=== PATIENT | male | born 1965 | race Two or more races ===

== ENCOUNTER 2025-03-29 10:41 | Emergency (ER) | payer OTHER, MEDICAID ==
[~2025-03-29] VITALS: Ht 175.3 cm; Wt 82.0 kg
--- NOTE | 2025-03-29 11:35 | ED.PDOC ---
History of Present Illness HPI Comments A 59-YEAR-OLD MALE PRESENTS WITH A CHIEF COMPLAINT OF HTN. PT STATES HE HAS HX OF HTN AND TAKES LISINOPRIL 10MG DAILY. HE RAN OUT OF HIS MEDICATION ONE MPONTH AGO AND HE DID NOT TAKE HIS HTN MEDICATION FOR ONE MONTH. HE CHECKED HIS BLOOD PRESSURE AT HOME THIS MORNING AND AND IT WAS 188/103 & 169/101. HE TOOK SOMEONE'S HTN MEDICATION, NOW BLOOD PRESSURE IS 143/86. PATIENT DENIES FEVER, SOB, CHEST PAIN, HEADACHE, DIZZINESS AND OTHER COMPLAINTS. PT IS ALERT, ORIENTATION X4 WITH NORMAL GAIT. NO OTHER SYMPTOMS REPORTED AT THIS TIME OF CARE. Chief Complaint: High Blood Pressure Time Seen by MD: 11:30 Reviewed Notes: Nurses Notes, Medications, Allergies Allergies: Coded Allergies: NO KNOWN ALLERGIES (Unverified , 03/29/25) Home Meds Active Scripts Lisinopril (Lisinopril) 20 Mg Tab, 1 TAB PO DAILY, #30 TAB 1 Refill Prov:MILLICENT CULLEN 03/29/25 Information Source: Patient Mode of Arrival: Ambulatory Severity: Mild, Moderate Timing: Days Duration: Since onset, Days Prehospital treatment: None Medication Refill: Ran out of Medication, For: Hypertension Past Medical History PAST MEDICAL HISTORY: HTN Surgical History: Denies all surgeries Family History Family History: Reviewed,noncontributory to illness Social History Smoker: Non-Smoker Alcohol: Denies ETOH Use Drugs: Denies Drug Use Lives In: Home Constitutional: denies: chills, diaphoresis, fatigue, fever, malaise, sweats, weakness, others EENTM: denies: blurred vision, double vision, ear bleeding, ear discharge, ear drainage, ear pain, ear ringing, eye pain, eye redness, hearing loss, mouth pain, mouth swelling, nasal discharge, nose bleeding, nose congestion, nose pain, photophobia, tearing, throat pain, throat swelling, voice changes, others Respiratory: denies: cough, hemoptysis, orthopnea, SOB at rest, shortness of breath, SOB with excertion, stridor, wheezing, others Cardiovascular: denies: chest pain, dizzy spells, diaphoresis, Dyspnea on exertion, edema, irregular heart beat, left arm pain, lightheadedness, palpitations, PND, syncope, others Gastrointestinal: denies: abdomen distended, abdominal pain, blood streaked bowels, constipated, diarrhea, dysphagia, difficulty swallowing, hematemesis, melena, nausea, poor appetite, poor fluid intake, rectal bleeding, rectal pain, vomiting, others Genitourinary: denies: burning, dysuria, flank pain, frequency, hematuria, incontinence, penile discharge, penile sore, pain, testicle pain, testicle swelling, urgency, others Neurological: denies: dizziness, fainting, headache, left sided numbness, left sided weakness, numbness, paresthesia, pre-existing deficit, right sided numbness, right sided weakness, seizure, speech problems, tingling, tremors, weakness, others Musculoskeletal: denies: back pain, gout, joint pain, joint swelling, muscle pain, muscle stiffness, neck pain, others Integumetry: denies: bruises, change in color, change in hair/nails, dryness, laceration, lesions, lumps, rash, wounds, others Allergic/Immunocompromised: denies: Difficulty Healing, Frequent Infections, Hives, Itching, others Hematologic/Lymphatic: denies: anemia, blood clots, easy bleeding, easy bruising, swollen glands, others Endocrine: denies: excessive hunger, excessive sweating, excessive thirst, excessive urination, flushing, intolerance to cold, intolerance to heat, unexplained weight gain, unexplained weight loss, others Psychiatric: denies: anxiety, bipolar disorder, depression, hopeless, panic disorder, schizophrenia, sleepless, suicidal, others All Other Systems: Reviewed and Negative Physical Exam General Appearance: No Apparent Distress, Normal HEENT: Normal ENT Inspection, PERRL/EOMI, Pharynx Normal, TMs Normal Neck: Full Range of Motion, Non-Tender, Normal, Normal Inspection Respiratory: Chest Non-Tender, Lungs Clear, No Accessory Muscle Use, No Respiratory Distress, Normal Breath Sounds Cardiovascular: No Edema, No JVD, No Murmur, No Gallop, Normal Peripheral Pulses, Regular Rate/Rhythm Breast Exam: Deferred Gastrointestinal: No Organomegaly, Non Tender, No Pulsatile Mass, Normal Bowel Sounds, Soft Genitalia: Deferred Pelvic: Deferred Rectal: Deferred Extremities: No calf tenderness, Normal capillary refill, Normal inspection, Normal range of motion, Non-tender, No pedal edema Musculoskeletal : Apperance: Normal Neurologic: Alert, senior quality engineer II-XII nml as Tested, No Motor Deficits, Normal Affect, Normal Mood, No Sensory Deficits Cerebellar Function: Normal Reflexes: Normal Skin: Dry, Normal Color, Warm Peripheral Pulses: 2+ carotid (R), 2+ carotid (L) Lymphatic: No Adenopathy Was a procedure done? Was a procedure done?: No Differential Dx Considerations may include: HTN, NONCOMPLIANT HTN MEDICATION X-Ray, Labs, Meds, VS Vital Signs Date Time Temp Pulse Resp B/P (MAP) Pulse Ox O2 Delivery O2 Flow Rate FiO2 03/29/25 12:33 97.5 92 18 163/93 (116) 95 97.5 03/29/25 12:33 92 18 95 Room Air 03/29/25 11:31 143/86 (105) 03/29/25 10:47 84 03/29/25 10:41 97.6 97 18 188/103 97 97.6 Lab Test 03/29/25 11:37 Range/Units White Blood Count 8.2 4.4-10.8 10^3/uL Red Blood Count 5.98 H 4.5-5.90 10^6/uL Hemoglobin 18.5 H 13.5-17.5 g/dL Hematocrit 51.9 41.0-53.0 % Mean Corpuscular Volume 86.8 80.0-100.0 fL Mean Corpuscular Hemoglobin 31.0 28.0-32.0 pg Mean Corpuscular Hemoglobin Concent 35.7 32.0-36.0 g/dL Red Cell Distribution Width 13.8 11.8-14.3 % Platelet Count 267 140-450 10^3/uL Mean Platelet Volume 7.3 6.9-10.8 fL Neutrophils (%) (Auto) 72.6 37.0-80.0 % Lymphocytes (%) (Auto) 18.9 10.0-50.0 % Monocytes (%) (Auto) 5.4 0.0-12.0 % Eosinophils (%) (Auto) 2.5 0.0-7.0 % Basophils (%) (Auto) 0.6 0.0-2.0 % Neutrophils # (Auto) 5.9 1.6-8.6 10 ^3/uL Lymphocytes # (Auto) 1.5 0.4-5.4 10 ^3/uL Monocytes # (Auto) 0.4 0-1.3 10 ^3/uL Eosinophils # (Auto) 0.2 0-0.8 10 ^3/uL Basophils # (Auto) 0.1 0-0.2 10 ^3/uL Nucleated Red Blood Cells 0.1 % Sodium Level 138 136-145 mmol/L Potassium Level 4.7 3.5-5.1 mmol/L Chloride Level 102 98-107 mmol/L Carbon Dioxide Level 30 20-31 mmol/L Anion Gap 6 5-15 Blood Urea Nitrogen 22 9-23 mg/dL Creatinine 1.27 0.700-1.30 mg/dL Glomerular Filtration Rate Calc 65 >90 mL/min BUN/Creatinine Ratio 17.3 10.0-20.0 Serum Glucose 171 H 74-106 mg/dL Calcium Level 9.5 8.7-10.4 mg/dL Troponin I High Sensitivity 8 </=54 ng/L PATIENT: TITO LINCCT: [id number]: [id number] : 1965 LOC: ER ROOM / BED: / AGE / SEX: 59 / M ADM STATUS: REG ER SERVICE 1130 ORDERING PHYSICIAN: MILLICENT CULLEN PROCEDURE(s): CXR1 - CHEST XRAY 1 VIEW REASON: HTN ORDER NUMBER(s): [id number], ACCESSION NUMBER(s): [id number] CHEST RADIOGRAPH Indication: HTN Technique: Single frontal view of the chest was obtained Comparison: None FINDINGS: Lines and Tubes: None Lungs: No focal consolidation. Pleura: No effusion. No pneumothorax. Cardiomediastinal contours: Unremarkable Bones: No acute osseous abnormality. IMPRESSION: No acute cardiopulmonary disease. ATED BY: ISAÍAS ZUNIGA MD DICTATED DATE/TIME: 03/29/251201 SIGNED BY: ISAÍAS ZUNIGA MD SIGNED DATE/TIME: 03/29/251201 CC: X-Ray, Labs, Meds, VS Comment EXTERNAL MEDICAL RECORDS REVIEWED: [NONE] INDEPENDENT HISTORIANS: [NONE] SOCIAL DETERMINANTS OF HEALTH: [NONE] LABS ORDERED: BMP, CBC, UA REVIEWED AND INTERPRETED RESULTS: NONE IMAGING ORDERED: CHEST X-RAY: NORMAL TREATMENTS ORDERED: NO PROCEDURES PERFORMED: NONE CRITICAL CARE TIME: NONE I HAVE DISCUSSED THE PATIENT WITH THE ATTENDING PHYSICIAN DR. JOSE ROBERTO FARLEY AND SHE AGREES WITH THE PATIENT'S PLAN OF CARE AND DISPOSITION. BASED ON HISTORY OF PRESENT ILLNESS, AND PHYSICAL EXAM, PATIENT WILL BE DISCHARGED HOME. DISCUSSED PLAN FOR DISCHARGE HOME WITH RX [LISINOPRIL 20MG ]. MEDICATION WARNINGS GIVEN. SHARED DECISION MAKING: DISCUSSED WITH PATIENT THAT THEIR WORKUP WAS NORMAL. PATIENT INSTRUCTED TO FOLLOW UP WITH PRIMARY CARE PROVIDER IN 1-2 DAYS FOR RE- EVALUATION OF SYMPTOMS. PATIENT VERBALIZES UNDERSTANDING TO RETURN TO ED FOR NEW OR WORSENING SYMPTOMS OR IF FOLLOW UP WITH PCP CANNOT BE OBTAINED. PATIENT FEELS COMFORTABLE GOING HOME AT THIS TIME. ALL QUESTIONS ADDRESSED AT TIME OF DISCHARGE. Time of 1ST Reevaluation: 12:00 Reevaluation 1ST: Improved Patient Education/Counseling: Diagnosis, Treatment, Need For Follow Up Family Education/Counseling: Diagnosis, Treatment, No Family Present Medical Screening: No EMC Exist At This Time SEPSIS Sepsis Screen Date sepsis recognized/suspect: Mar 29, 2025 Time Sepsis recognized/suspect: 1043 Recent Procedure: No On Antibiotic Therapy: No Respiratory Rate >20: No Heart Rate >90: Yes Temp<36 C (96.8 F) or >38.3 C: No SBP <90 or MAP <65 mmHG: No New Acute Mental Status Change: No Is the patient on CPAP, BIPAP,: No Physician Orders Electrocardigram (03/29/25 10:44) Urinalysis (03/29/25 11:30) Chest Xray 1 View (03/29/25 11:30) Vital Signs Date Time Temp Pulse Resp B/P (MAP) Pulse Ox O2 Delivery O2 Flow Rate FiO2 03/29/25 12:33 97.5 92 18 163/93 (116) 95 97.5 03/29/25 12:33 92 18 95 Room Air 03/29/25 11:31 143/86 (105) 03/29/25 10:47 84 03/29/25 10:41 97.6 97 18 188/103 97 97.6 Laboratory Tests Test 03/29/25 11:37 White Blood Count 8.2 10^3/uL (4.4-10.8) Departure 1 Departure Time of Disposition: 12:22 Impression: Primary Impression: HTN (hypertension) Qualified Codes: I10 - Essential (primary) hypertension Additional Impressions: Non-compliance Hyperglycemia Disposition: HOME / SELF CARE / HOMELESS Condition: Stable Additional Instructions: FOLLOW-UP WITH PCP IN 1 TO 2 DAYS FOR A FASTING BLOOD GLUCOSE TEST DUE TO HYPOGLYCEMIA. TAKE MEDICATIONS PRESCRIBED. RETURN TO ED FOR ANY NEW OR WORS ENING SYMPTOMS. e-Prescriptions Lisinopril (Lisinopril) 20 Mg Tab 1 TAB PO DAILY, #30 TAB 1 Refill Prov: MILLICENT CULLEN 03/29/25 Discharged With: Self Critical Care Note Critical Care Time?: No Stability Stability form required: No Heart Score Heart Score: Heart Score Response (Comments) Value History N/A 0 EKG N/A 0 Age N/A 0 Risk Factors N/A 0 Troponin N/A 0 Total 0 I personally scribed for MILLICENT CULLEN ([email or web address]) on 03/29/25 at 11:35. Electronically submitted by Dex Arauz ([email or web address]). I personally scribed for MILLICENT CULLEN ([email or web address]) on 03/29/25 at 12:22. Electronically submitted by Dex Arauz ([email or web address]). I personally scribed for MILLICENT CULLEN ([email or web address]) on 03/29/25 at 12:43. Electronically submitted by Dex Arauz ([email or web address]). MILLICENT CULLEN Mar 29, 2025 11:35
[2025-03-29 11:52] LABS: Mean Corpuscular Volume 86.8 fL (80.0-100.0); Nucleated Red Blood Cells % 0.1 %
[2025-03-29 11:53] LABS: Hematocrit 51.9 % (41.0-53.0); Hemoglobin 18.5 g/dL (13.5-17.5); Mean Corpuscular Hemoglobin 31.0 pg (28.0-32.0)
[2025-03-29 12:04] LABS: Chloride 102 mmol/L (98-107); Potassium 4.7 mmol/L (3.5-5.1); Sodium 138 mmol/L (136-145)
--- NOTE | 2025-03-29 12:04 | DVH ---
CHEST RADIOGRAPH Indication: HTN Technique: Single frontal view of the chest was obtained Comparison: None FINDINGS: Lines and Tubes: None Lungs: No focal consolidation. Pleura: No effusion. No pneumothorax. Cardiomediastinal contours: Unremarkable Bones: No acute osseous abnormality. IMPRESSION: No acute cardiopulmonary disease.
[2025-03-29 12:05] LABS: Anion Gap 6 (5-15); Calcium 9.5 mg/dL (8.7-10.4); Carbon Dioxide 30 mmol/L (20-31)
[2025-03-29 12:10] LABS: BUN/Creatinine Ratio 17.3 (10.0-20.0); Blood Urea Nitrogen 22 mg/dL (9-23)
[2025-03-29 12:17] LABS: Glucose 171 mg/dL (74-106)
[2025-03-29] MEDS ORDERED: LISI20TA56 PO (12:32)
[2025-03-29 12:33] VITALS: BP 163/93; PULSE 92; RESP 18; TEMP 97.5; O2SAT 95
--- NOTE | 2025-04-02 07:37 | ECG ---
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
== END 2025-03-29 12:37 | disposition home or self-care (01) ==
LOC: ER 10:41
DX: I10 Essential (primary) hypertension (principal); R73.9 Hyperglycemia, unspecified; Z91.148 Patient's other noncompliance with medication regimen for other reason
CPT/HCPCS: 36415; 71045; 80048; 84484; 85025; 93005